=== PATIENT | female | born 1960 | race Caucasian/White ===

== ENCOUNTER → 2017-07-31 | Outpatient (CLI) | payer OTHER ==
--- NOTE | 2017-08-05 07:16 | MM ---
Reason for exam: screening (asymptomatic). Last mammogram was performed 1 year and 2 months ago. History: Patient is postmenopausal. Took hormonal contraceptives for 10 years beginning at age 24. Physical Findings: A clinical breast exam by your physician is recommended on an annual basis and results should be correlated with mammographic findings. MG 3D Screening Mammo W/Cad Bilateral CC and MLO view(s) were taken. Prior study comparison: May 22, 2016, bilateral MG 3d work up w/cad MYLES. May 11, 2016, bilateral MG screening mammo w CAD. February 22, 2015, bilateral MG screening mammo w CAD. The breast tissue is heterogeneously dense. This may lower the sensitivity of mammography. No suspicious abnormality. No significant changes when compared with prior studies. ASSESSMENT: Negative, BI-RAD 1 RECOMMENDATION: Routine screening mammogram of both breasts in 1 year.
== END | disposition home or self-care (01) ==
LOC: RADMAMWWP 07:35
PROVIDERS: ATTEND Obstetrics & Gynecology
DX: Z12.31 Encounter for screening mammogram for malignant neoplasm of breast (principal)
CPT/HCPCS: 77063; G0202

== ENCOUNTER → 2018-08-08 | Outpatient (CLI) | payer OTHER ==
--- NOTE | 2018-08-11 11:56 | MM ---
Reason for exam: screening (asymptomatic). Last mammogram was performed 1 year ago. History: Patient is postmenopausal. Took hormonal contraceptives for 10 years beginning at age 24. Physical Findings: A clinical breast exam by your physician is recommended on an annual basis and results should be correlated with mammographic findings. MG 3D Screening Mammo W/Cad Bilateral CC and MLO view(s) were taken. Prior study comparison: July 31, 2017, bilateral MG 3d screening mammo w/cad. May 22, 2016, bilateral MG 3d work up w/cad MYLES. The breast tissue is extremely dense which could obscure a lesion on mammography. Benign calcifications. There is chronic nodularity in the left breast, stable. No significant changes when compared with prior studies. ASSESSMENT: Benign, BI-RAD 2 RECOMMENDATION: Routine screening mammogram of both breasts in 1 year.
== END | disposition home or self-care (01) ==
LOC: RADMAMWWP 12:43
PROVIDERS: ATTEND Obstetrics & Gynecology
DX: Z12.31 Encounter for screening mammogram for malignant neoplasm of breast (principal)
CPT/HCPCS: 77063; 77067

== ENCOUNTER → 2018-09-29 | Outpatient (CLI) | payer OTHER ==
--- NOTE | 2018-09-29 18:28 | BD ---
EXAMINATION TYPE: Axial Bone Density DATE OF EXAM: 09/29/2018 COMPARISON: NONE CLINICAL HISTORY: 58-year-old female follow-up known osteoporosis Height: 64.5 Weight: 137.7 FRAX RISK QUESTIONS: Alcohol (3 or more units per day): no Family History (Parent hip fracture): no Glucocorticoids (More than 3mos): no (Ex: prednisone, prednisolone, methylprednisolone, dexamethasone, and hydrocortisone). History of Fracture in Adulthood: no Secondary Osteoporosis: 1. Type 1 Diabetes: no 2. Hyperthyroidism: no 3. Menopause before 45: no 4. Malnutrition: no 5. Chronic liver disease: no Rheumatoid Arthritis: no Current Tobacco Use: no RISK FACTORS HISTORY OF: Family History of Osteoporosis: no Active: yes Diet low in dairy products/other sources of calcium: no Postmenopausal woman: age 50 Lost more than 2 inches in height since high school: no MEDICATIONS: none Additional History: EXAM MEASUREMENTS: Bone mineral densitometry was performed using the [employer] System. Bone mineral density as measured about the Lumbar spine is: ----- L1-L4(G/cm2): 1.261 T Score Values are as follows: ----- L2: 0.4 ----- L3: 0.6 ----- L4: 0.8 ----- L1-L4: 0.7 Bone mineral density has: decreased -9.6 % since study of: 03.07.2012 Bone mineral density about the R hip (g/cm2): 0.880 Bone mineral density about the L hip (g/cm2): 0.836 T Score values are as follows: -----R Neck: -1.1 -----L Neck: -1.5 -----R Total: -0.8 -----L Total: -0.1 Bone mineral density has: decreased -4.5 % since study of: 03.07.2012 IMPRESSION: Osteopenia (T Score between -2.5 and -1). There is slightly increased risk of fracture and the patient may be considered for treatment. Re-Screen 2-5 years. NOTE: T-SCORE=SD OF THE YOUNG ADULT MEAN.
== END | disposition home or self-care (01) ==
LOC: RADBDWWP 16:01
PROVIDERS: ATTEND Internal Medicine
DX: M81.0 Age-related osteoporosis without current pathological fracture (principal)
CPT/HCPCS: 77080

== ENCOUNTER → 2019-10-07 | Outpatient (CLI) | payer OTHER ==
--- NOTE | 2019-10-08 10:09 | MM ---
Reason for exam: screening (asymptomatic). Last mammogram was performed 1 year and 2 months ago. History: Patient is postmenopausal. Took hormonal contraceptives for 10 years beginning at age 24. Physical Findings: A clinical breast exam by your physician is recommended on an annual basis and results should be correlated with mammographic findings. MG 3D Screening Mammo W/Cad Bilateral CC and MLO view(s) were taken. Prior study comparison: August 08, 2018, bilateral MG 3d screening mammo w/cad. July 31, 2017, bilateral MG 3d screening mammo w/cad. The breast tissue is heterogeneously dense. This may lower the sensitivity of mammography. There are benign appearing bilateral calcifications and bilateral oil cysts. No suspicious abnormality. No significant changes when compared with prior studies. ASSESSMENT: Benign, BI-RAD 2 RECOMMENDATION: Routine screening mammogram of both breasts in 1 year.
== END | disposition home or self-care (01) ==
LOC: RADMAMWWP 07:48
PROVIDERS: ATTEND Obstetrics & Gynecology
DX: Z12.31 Encounter for screening mammogram for malignant neoplasm of breast (principal)
CPT/HCPCS: 77063; 77067

== ENCOUNTER → 2020-12-30 | Outpatient (CLI) | payer OTHER ==
--- NOTE | 2021-01-02 11:15 | MM ---
Reason for exam: screening (asymptomatic). Last mammogram was performed 1 year and 3 months ago. History: Patient is postmenopausal. Took hormonal contraceptives for 10 years beginning at age 24. Physical Findings: A clinical breast exam by your physician is recommended on an annual basis and results should be correlated with mammographic findings. MG 3D Screening Mammo W/Cad Bilateral CC and MLO view(s) were taken. Prior study comparison: October 07, 2019, bilateral MG 3d screening mammo w/cad. August 08, 2018, bilateral MG 3d screening mammo w/cad. The breast tissue is heterogeneously dense. This may lower the sensitivity of mammography. There is no discrete abnormality. No significant changes when compared with prior studies. ASSESSMENT: Negative, BI-RAD 1 RECOMMENDATION: Routine screening mammogram of both breasts in 1 year.
== END | disposition home or self-care (01) ==
LOC: RADMAMWWP 13:55
PROVIDERS: ATTEND Obstetrics & Gynecology
DX: Z12.31 Encounter for screening mammogram for malignant neoplasm of breast (principal); Z78.0 Asymptomatic menopausal state
CPT/HCPCS: 77063; 77067

== ENCOUNTER → 2022-02-13 | Outpatient (CLI) | payer OTHER ==
--- NOTE | 2022-02-15 17:29 | MM ---
Reason for Exam: Screening (asymptomatic). Last mammogram was performed 1 year(s) and 2 month(s) ago. Patient History: Menarche at age 13. First Full-Term at age 22. Postmenopausal. Hormonal Contraceptives, starting at age 24 for 10 years. Risk Values: Dana 5 year model risk: 1.3%. NCI Lifetime model risk: 6.4%. Prior Study Comparison: 08/08/2018 Bilateral Screening Mammogram, [facility]. 10/07/2019 Bilateral Screening Mammogram, [facility]. 12/30/2020 Bilateral Screening Mammogram, [facility]. Tissue Density: The breast tissue is heterogeneously dense. This may lower the sensitivity of mammography. Findings: Analyzed By CAD. The pattern appears symmetrical and stable. Benign spherical calcifications are present. No significant interval changes. No suspicious groups of microcalcifications, spiculated or lobular masses, Architectural distortion or other secondary signs of malignancy are mammographically apparent. Overall Assessment: Benign, BI-RAD 2 Management: Screening Mammogram of both breasts in 1 year. A clinical breast exam by your physician is recommended on an annual basis and results should be correlated with mammographic findings. Electronically signed and approved by: Lester Cortez D.O. Radiologis
== END | disposition home or self-care (01) ==
LOC: RADMAMWWP 11:09
PROVIDERS: ATTEND Obstetrics & Gynecology
DX: Z12.31 Encounter for screening mammogram for malignant neoplasm of breast (principal)
CPT/HCPCS: 77063; 77067

== ENCOUNTER 2022-12-26 11:38 | Day surgery (SDC) | payer OTHER ==
[~2022-12-26 11:38] MED LIST: LACTATED RINGERS 1,000 ML IV SCH; LIDOCAINE 1% (10MG/ML) FOR IV START INTRADERMA PRN
[2022-12-26 12:30] VITALS: TEMP 98.2
[2022-12-26] MEDS ORDERED: LIDOCAINE 2% INJ 20 MG/ML (2 ML VIAL) ONE (12:34)
[2022-12-26] MEDS ORDERED: PROPOFOL 10 MG/ML 20 ML VIAL IV ONE (12:34)
--- NOTE | 2022-12-26 12:48 | P.PCN ---
Date of Procedure: 12/26/22 Procedure(s) Performed: BRIEF HISTORY: Patient is a 62-year-old pleasant white female scheduled for an elective colonoscopy as a part of screening for colon cancer. PROCEDURE PERFORMED: Colonoscopy. PREOPERATIVE DIAGNOSIS: Screening for colon cancer. IV sedation per Anesthesia. PROCEDURE: After informed consent was obtained, the patient, was brought into the endoscopy unit. IV sedation was administered by Anesthesia under continuous monitoring. Digital rectal examination was normal. Initially the Olympus CF-160 flexible video colonoscope was then inserted in the rectum, gradually advanced into the cecum without any difficulty. Careful examination was performed as the scope was gradually being withdrawn. Ileocecal valve and the appendiceal orifice were visualized and appeared normal. Prep was excellent. Mucosa of the cecum, ascending colon, transverse colon, descending colon, sigmoid colon, and rectum appeared normal. Retroflexion was performed in the rectum and small internal hemorrhoid were seen. The patient tolerated the procedure well. IMPRESSION: Normal-appearing colon from rectum to cecum with no evidence of colorectal neoplasia Small internal hemorrhoids . RECOMMENDATIONS: Findings of this examination were discussed with the patient as well as a family.. She was advised to have a repeat screening colonoscopy in 10 years
[2022-12-26 13:06] VITALS: RESP 16
[2022-12-26 13:12] VITALS: BP 111/70; PULSE 66
== END 2022-12-26 13:37 | disposition home or self-care (01) ==
LOC: ORWHC2ENDO 11:38
PROVIDERS: ATTEND Internal Medicine Gastroenterology
DX: Z12.11 Encounter for screening for malignant neoplasm of colon (principal); K64.8 Other hemorrhoids; F41.9 Anxiety disorder, unspecified; Z79.899 Other long term (current) drug therapy
CPT/HCPCS: 45378; J2704; J2001

== ENCOUNTER → 2023-08-29 | Outpatient (CLI) | payer OTHER ==
--- NOTE | 2023-08-29 21:49 | BD ---
EXAMINATION TYPE: Axial Bone Density DATE OF EXAM: 08/29/2023 CLINICAL HISTORY: 63 years old Female. ICD-10 CODE: M85.80 DISORDER OF BONE DENSITY Height: 64.25in Weight: 137lb FRAX RISK QUESTIONS: Secondary Osteoporosis: RISK FACTORS HISTORY OF: Active: yes Postmenopausal woman: yes MEDICATIONS: Additional Medications: calcium with vitamin d Additional History: EXAM MEASUREMENTS: Bone mineral densitometry was performed using the [employer] System. Bone mineral density as measured about the Lumbar spine is: ----- L1-L4(G/cm2): 1.254 T Score Values are as follows: ----- L1: 0.3 ----- L2: 0.2 ----- L3: 0.8 ----- L4: 1.0 ----- L1-L4: 0.6 Z Score Values are as follows: ----- L1: 1.8 ----- L2: 1.7 ----- L3: 2.3 ----- L4: 2.6 ----- L1-L4: 2.2 Bone mineral density has: Decreased -10.6% since study of: 03-07-12 (2019 study not available for jeremiah wall) Bone mineral density about the R hip (g/cm2): 0.897 Bone mineral density about the L hip (g/cm2): 0.996 T Score values are as follows: -----R Neck: -1.7 -----L Neck: -1.0 -----R Total: -0.9 -----L Total: -0.1 Z Score values are as follows: -----R Neck: -0.3 -----L Neck: 0.5 -----R Total: 0.3 -----L Total: 1.1 Bone mineral density has: Decreased -5.2% since study of: 03-07-12 (2019 study not available for alex be) FRAX%s: The graph provided illustrates a 9.1% chance for a major osteoporotic fx and a 1.1% chance fo r the hips probability for fx in 10 years time. IMPRESSION: Osteopenia (T Score between -2.5 and -1). There is slightly increased risk of fracture and the patient may be considered for treatment. Re-Screen 2-5 years. NOTE: T-SCORE=SD OF THE YOUNG ADULT MEAN.
--- NOTE | 2023-09-03 19:19 | MM ---
Reason for Exam: Screening (asymptomatic). Last mammogram was performed 1 year(s) and 6 month(s) ago. Patient History: Menarche at age 13. First Full-Term at age 22. Postmenopausal. Hormonal Contraceptives, starting at age 24 for 10 years. Risk Values: Dana 5 year model risk: 1.4%. NCI Lifetime model risk: 6.0%. Prior Study Comparison: 10/07/2019 Bilateral Screening Mammogram, [facility]. 12/30/2020 Bilateral Screening Mammogram, [facility]. 02/13/2022 Bilateral MG 3D screening mammo w/cad, [facility]. Tissue Density: The breast tissue is heterogeneously dense. This may lower the sensitivity of mammography. Findings: Analyzed By CAD. Nodularity in the upper outer quadrant of the right breast is increased on the CC projection but remains similar on the MLO view. Further evaluation is recommended. Otherwise, no significant change. Overall Assessment: Incomplete: need additional imaging evaluation, BI-RAD 0 Management: Special View Mammogram of the right breast. Diagnostic Breast Ultrasound of the right breast. Additional views right breast to include spot 3-D CC, 3-D CC rolled, spot 3-D MLO, and 3-D ML views. Targeted right breast ultrasound if any persisting abnormality. [facility] will attempt to contact patient to return for supplemental views and ultrasound if indicated. Electronically signed and approved by: Aristeo Head M.D. Radiologist
== END | disposition home or self-care (01) ==
LOC: RADBDWWP 07:13
PROVIDERS: ATTEND Family Medicine
DX: Z12.31 Encounter for screening mammogram for malignant neoplasm of breast (principal); M85.851 Other specified disorders of bone density and structure, right thigh; Z78.0 Asymptomatic menopausal state
CPT/HCPCS: 77063; 77067; 77080

== ENCOUNTER → 2023-09-19 | Outpatient (CLI) | payer OTHER ==
--- NOTE | 2023-09-19 08:52 | MM ---
Reason for Exam: Additional evaluation requested from abnormal screening. Last screening mammogram was performed less than 1 month ago. Patient History: Menarche at age 13. First Full-Term at age 22. Postmenopausal. Hormonal Contraceptives, starting at age 24 for 10 years. Risk Values: Dana 5 year model risk: 1.4%. NCI Lifetime model risk: 6.0%. Tissue Density: Right: The breast tissue is heterogeneously dense. This may lower the sensitivity of mammography. Findings: Analyzed By CAD. There is persistent high density area within distinct margins upper outer mid right breast. There are small calcifications present which are increasing from comparison. Biopsy is recommended. Overall Assessment: Incomplete: need additional imaging evaluation, BI-RAD 0 Management: Diagnostic Breast Ultrasound of the right breast. A negative mammogram report should not preclude additional follow up of suspicious palpable abnormalities. Patient should continue monthly self breast exam. A clinical breast exam by your physician is recommended on an annual basis and results should be correlated with mammographic findings. Electronically signed and approved by: Lester Cortez D.O. Radiologis
--- NOTE | 2023-09-19 10:20 | USB ---
Reason for Exam: Additional evaluation requested from abnormal screening. Patient History: Menarche at age 13. First Full-Term at age 22. Postmenopausal. Hormonal Contraceptives, starting at age 24 for 10 years. Risk Values: Dana 5 year model risk: 1.4%. NCI Lifetime model risk: 6.0%. Technique: Method: Targeted. Prior Study Comparison: 12/30/2020 Bilateral Screening Mammogram, [facility]. 02/13/2022 Bilateral MG 3D screening mammo w/cad, [facility]. 08/29/2023 Bilateral MG 3D screening mammo w/cad, [facility]. Findings: The upper outer quadrant of the right breast, the axilla of the right breast and the retroareolar of the right breast were scanned. There is a 0.5 x 0.5 x 0.7 cm nodule 10:00 position 3 cm from the nipple. This appears to correlate with mammographic findings. Some shadowing may be related to calcification structure. Finding is considered suspicious, biopsy is recommended. Note is made of an anechoic structure measuring approximately 0.2 x 0.3 x 0.5 cm in the right nipple region may be a small cyst.. Overall Assessment: Suspicious, BI-RAD 4 Management: Ultrasound Core Biopsy of the right breast. A clinical breast exam by your physician is recommended on an annual basis and results should be correlated with mammographic findings. This exam should not preclude additional follow-up of suspicious palpable abnormalities. Results were given to the patient verbally at the time of exam. Electronically signed and approved by: Lester Cortez D.O. Radiologis
== END | disposition home or self-care (01) ==
LOC: RADMAMWWP 08:23
PROVIDERS: ATTEND Family Medicine
DX: R92.331 Mammographic heterogeneous density, right breast (principal); Z78.0 Asymptomatic menopausal state
CPT/HCPCS: 77061; 77065

== ENCOUNTER → 2023-10-02 | Day surgery (SDC) | payer OTHER | LOC: RADUSWWP 12:27 | PROVIDERS: ATTEND Surgery | DX: R92.1 Mammographic calcification found on diagnostic imaging of breast (principal) | CPT/HCPCS: 88305; 77065; 19083; A4648 ==

== ENCOUNTER → 2023-10-18 | Outpatient (CLI) | payer OTHER ==
--- NOTE | 2023-10-18 13:06 | P.GSHP ---
History of Present Illness H&P Date: 10/18/23 Chief Complaint: Stereo biopsy right breast/benign concordant 10-02-23 Roro is a 63-year-old white female seen in consultation for Dr. Colunga regarding a right breast ultrasound-guided core biopsy. She underwent a bilateral mammogram August 2023 which led to additional views of the right breast. The additional views were done on 09-19-2023. This led to an ultrasound-guided core biopsy of the right breast on 10-02-2023. Pathology revealed scar with calcifications and chronic inflammation. Negative for malignancy. This was reviewed personally with the radiologist and this was felt to be benign and concordant. The patient had not felt any lumps masses or nod ules of concern in either breast prior to the biopsy. She had never had any surgery on her breast before. She is not complaining of any recent trauma or infection in the breast. Caffeine: none nicotine: none chocolate: occasional BCP: 7 years hormones: none Family History: Prostate cancer Sister: Kidney cancer Hormonal history: Menarche: 13 , age at first : 22, breast fed: yes menopause: 50 Surgical history: uterine ablation LEEP sinus surgery Medical History: none Social History: nicotine: none alcohol: occasional drugs: none - Constitutional Constitutional: Reports sweats - EENT Eyes: bilateral dry eye, denies blurred vision, denies pain Ears: deny: decreased hearing, tinnitus Ears, nose, mouth and throat: Denies headache, Denies sore throat - Breasts Breasts: bilateral: as per HPI - Cardiovascular Cardiovascular: Denies chest pain, Denies shortness of breath - Respiratory Respiratory: Denies cough, Denies 7 - Gastrointestinal Comment: IBS Gastrointestinal: Reports diarrhea, Denies abdominal pain, Denies nausea, Denies vomiting - Genitourinary (Female) Genitourinary: Denies dysuria, Denies hematuria - Menstruation Menstruation: Reports postmenopausal - Musculoskeletal Musculoskeletal: Denies myalgias - Integumentary Integumentary: Denies pruritus, Denies rash - Neurological Neurological: Denies numbness, Denies weakness - Psychiatric Psychiatric: Reports anxiety, Reports depression - Endocrine Endocrine: Denies fatigue, Denies weight change - Hematologic/Lymphatic Comment: none - Allergic/Immunologic Allergic/Immunologic: Reports seasonal allergies Past Medical History Past Medical History: No Reported History History of Any Multi-Drug Resistant Organisms: None Reported Past Surgical History: No Surgical Hx Reported Additional Past Surgical History / Comment(s): colonoscopy, LEEP procedure Past Anesthesia/Blood Transfusion Reactions: No Reported Reaction Past Psychological History: Anxiety Smoking Status: Never smoker Past Alcohol Use History: Occasional Additional Past Alcohol Use History / Comment(s): couple drinks per week Past Drug Use History: None Reported Medications and Allergies Home Medications Medication Instructions Recorded Confirmed Type Multivitamins, Thera [Multivitamin 1 tab PO DAILY 12/21/22 10/18/23 History (formulary)] Venlafaxine HCl [Effexor XR] 75 mg PO DAILY 12/21/22 10/18/23 History Cholecalciferol (Vitamin D3) 50 mcg PO DAILY 10/18/23 10/18/23 History [Vitamin D3 (50 Mcg = 2000 Iu)] Fish Oil/Dha/Epa [Fish Oil 1,200 1,200 mg PO DAILY 10/18/23 10/18/23 History mg Fish Oil] Allergies Allergy/AdvReac Type Severity Reaction Status Date / Time venom-honey bee Allergy Swelling Verified 10/18/23 12:50 [bee venom (honey bee)] Surgical - Exam - General no distress - Eyes normal ocular movement - ENT no hearing loss - Neck trachea midline - Respiratory normal respiratory effort, clear to auscultation - Cardiovascular Heart Sounds: normal: S1, S2 - Abdomen Abdomen: soft - Integumentary normal turgor - Neurologic no disoriented, no combative - Musculoskeletal normal gait - Psychiatric oriented to time, oriented to person, oriented to place, speech is normal, memory intact Breast Exam: BRA: 34B Inspection: Bilateral grade 2 ptosis Palpation: Right breast: Multi positional exam no dominant masses or nodules of concern Right axilla: No adenopathy of concern Left breast: Multi positional exam no dominant masses or nodules of concern Left axilla: No adenopathy of concern Results Mammogram and ultrasound personally reviewed with radiology, the biopsy is felt to be benign concordant Assessment and Plan Assessment: Impression: Radiographic abnormality right breast Status post stereotactic core biopsy right breast/benign concordant Plan: Repeat right breast mammogram in 6 months with physician exam at that time Patient to follow-up sooner any questions or concerns CC: Dr. Salgado
[2023-10-18 13:07] VITALS: BP 128/71; PULSE 77; RESP 15; TEMP 98.1
== END ==
LOC: WWCWWP 12:09
PROVIDERS: ATTEND Surgery
DX: R92.8 Other abnormal and inconclusive findings on diagnostic imaging of breast (principal); N64.89 Other specified disorders of breast; F41.9 Anxiety disorder, unspecified; Z91.030 Bee allergy status

== ENCOUNTER → 2024-04-02 | Outpatient (CLI) | payer OTHER ==
--- NOTE | 2024-04-02 09:50 | USB ---
Reason for Exam: Follow-up at short interval from prior study. Patient History: Menarche at age 13. First Full-Term at age 22. Postmenopausal. Patient has history of breast feeding. Hormonal Contraceptives, starting at age 24 for 10 years. 10/02/2023, Benign US biopsy breast VAD RT on the right side. Risk Values: Dana 5 year model risk: 1.7%. NCI Lifetime model risk: 6.9%. Technique: Method: Targeted. Prior Study Comparison: 08/29/2023 Bilateral MG 3D screening mammo w/cad, [facility]. 09/19/2023 Right MG 3D work up w/cad RT, [facility]. 10/02/2023 Right MG diagnostic mammo RT wo CAD, [facility]. Findings: The lateral section of the breast of the right breast, the axilla of the right breast and the retroareolar of the right breast were scanned. Previously sampled slightly hypoechoic and partially hyperechoic lesion right 10:00 breast 3 cm from the nipple is slightly smaller in size and currently measures 0.4 x 0.4 x 0.4 cm versus 0.5 x 0.5 x 0.7 cm. Overall Assessment: Benign, BI-RAD 2 Management: Screening Mammogram of both breasts in 1 year. A clinical breast exam by your physician is recommended on an annual basis and results should be correlated with mammographic findings. This exam should not preclude additional follow-up of suspicious palpable abnormalities. Results were given to the patient verbally at the time of exam. Electronically signed and approved by: Aristeo Portillo M.D. Radiologis
--- NOTE | 2024-04-02 12:02 | MM ---
Reason for Exam: Follow-up at short interval from prior study. Last screening mammogram was performed 7 month(s) ago. Patient History: Menarche at age 13. First Full-Term at age 22. Postmenopausal. Patient has history of breast feeding. Hormonal Contraceptives, starting at age 24 for 10 years. 10/02/2023, Benign US biopsy breast VAD RT on the right side. Risk Values: Dana 5 year model risk: 1.7%. NCI Lifetime model risk: 6.9%. Prior Study Comparison: 07/31/2017 Bilateral Screening Mammogram, [facility]. 08/08/2018 Bilateral Screening Mammogram, [facility]. 10/07/2019 Bilateral Screening Mammogram, [facility]. 12/30/2020 Bilateral Screening Mammogram, [facility]. 02/13/2022 Bilateral MG 3D screening mammo w/cad, [facility]. 08/29/2023 Bilateral MG 3D screening mammo w/cad, [facility]. 09/19/2023 Right MG 3D work up w/cad RT, [facility]. 10/02/2023 Right MG diagnostic mammo RT wo CAD, [facility]. Tissue Density: Right: The breasts are heterogeneously dense, which may obscure small masses. Findings: Analyzed By CAD. Postbiopsy changes right breast. Ultrasound recommended for further evaluation. Benign punctate calcifications seen. No evidence for new mass or distortion. Overall Assessment: Incomplete: need additional imaging evaluation, BI-RAD 0 Management: Diagnostic Breast Ultrasound of the right breast. . Results were given to the patient verbally at the time of exam. Patient should continue monthly self-breast exams. A clinical breast exam by your physician is recommended on an annual basis. This exam should not preclude additional follow-up of suspicious palpable abnormalities. Note on Dana scores and lifetime risk: 1. A Dana score greater than 3% is considered moderate risk. If this is the case, consider specialist referral to assess eligibility for a risk reducing agent. 2. If overall lifetime risk for the development of breast cancer is 20% or higher, the patient may qualify for future screening with alternating mammogram and breast MRI. Electronically signed and approved by: Aristeo Portillo M.D. Radiologis
== END | disposition home or self-care (01) ==
LOC: RADMAMWWP 09:00
PROVIDERS: ATTEND Surgery
DX: R92.8 Other abnormal and inconclusive findings on diagnostic imaging of breast (principal); N63.11 Unspecified lump in the right breast, upper outer quadrant; R92.331 Mammographic heterogeneous density, right breast; Z78.0 Asymptomatic menopausal state
CPT/HCPCS: 77061; 77065

== ENCOUNTER → 2024-04-03 | Outpatient (CLI) | payer OTHER ==
[2024-04-03 09:42] VITALS: BP 105/65; PULSE 73; RESP 17; TEMP 97.8
--- NOTE | 2024-04-03 09:50 | P.PN ---
Subjective Progress Note Date: 04/03/24 Principal diagnosis: dense breast fibrocystic breast scar in right breast with chronic inflammation Roro is a 63-year-old white female seen in consultation for Dr. Colunga regarding a right breast ultrasound-guided core biopsy. She underwent a bilateral mammogram August 2023 which led to additional views of the right breast. The additional views were done on 09-19-2023. This led to an ultrasound-guided core biopsy of the right breast on 10-02-2023. Pathology revealed scar with calcifications and chronic inflammation. Negative for malignancy. This was reviewed personally with the radiologist and this was felt to be benign and concordant. The patient had not felt any lumps masses or nodules of concern in either breast prior to the biopsy. She had never had any surgery on her breast before. She is not complaining of any recent trauma or infection in the breast. The patient on 04-02-24 had a right breast mammogram and ultrasound. These were personally reviewed and interpreted. Dense breast, previously noted hyperechoic lesion stable BIRAD 2 She is not complaining of any new lumps masses or nodules of concern in either breast. Caffeine: none nicotine: none chocolate: occasional BCP: 7 years hormones: none Family History: Prostate cancer Sister: Kidney cancer Hormonal history: Menarche: 13 , age at first : 22, breast fed: yes menopause: 50 Surgical history: uterine ablation LEEP sinus surgery stero biopsy right breast Medical History: none Social History: nicotine: none alcohol: occasional drugs: none - Constitutional Constitutional: Reports sweats - EENT Eyes: bilateral dry eye, denies blurred vision, denies pain Ears: deny: decreased hearing, tinnitus Ears, nose, mouth and throat: Denies headache, Denies sore throat - Breasts Breasts: bilateral: as per HPI - Cardiovascular Cardiovascular: Denies chest pain, Denies shortness of breath - Respiratory Respiratory: Denies cough - Gastrointestinal Comment: IBS Gastrointestinal: Reports diarrhea, Denies abdominal pain, Denies nausea, Denies vomiting - Genitourinary (Female) Genitourinary: Denies dysuria, Denies hematuria - Menstruation Menstruation: Reports postmenopausal - Musculoskeletal Musculoskeletal: Denies myalgias - Integumentary Integumentary: Denies pruritus, Denies rash - Neurological Neurological: Denies numbness, Denies weakness - Psychiatric Psychiatric: Reports anxiety, Reports depression - Endocrine Endocrine: Denies fatigue, Denies weight change - Hematologic/Lymphatic Comment: none - Allergic/Immunologic Allergic/Immunologic: Reports seasonal allergies Past Medical History Past Medical History: No Reported History History of Any Multi-Drug Resistant Organisms: None Reported Past Surgical History: No Surgical Hx Reported Additional Past Surgical History / Comment(s): colonoscopy, LEEP procedure Past Anesthesia/Blood Transfusion Reactions: No Reported Reaction Past Psychological History: Anxiety Smoking Status: Never smoker Past Alcohol Use History: Occasional Additional Past Alcohol Use History / Comment(s): couple drinks per week Past Drug Use History: None Reported Medications and Allergies Home Medications Medication Instructions Recorded Confirmed Type Multivitamins, Thera [Multivitamin 1 tab PO DAILY 12/21/22 10/18/23 History (formulary)] Venlafaxine HCl [Effexor XR] 75 mg PO DAILY 12/21/22 10/18/23 History Cholecalciferol (Vitamin D3) 50 mcg PO DAILY 10/18/23 10/18/23 History [Vitamin D3 (50 Mcg = 2000 Iu)] Fish Oil/Dha/Epa [Fish Oil 1,200 1,200 mg PO DAILY 10/18/23 10/18/23 History mg Fish Oil] Allergies Allergy/AdvReac Type Severity Reaction Status Date / Time venom-honey bee Allergy Swelling Verified 10/18/23 12:50 [bee venom (honey bee)] Objective - Vital Signs Vital signs: Intake & Output 04/02/24 04/03/24 04/03/24 18:59 06:59 18:59 Weight 61.689 kg - Constitutional General appearance: Present: cooperative - EENT Eyes: Present: EOMI ENT: Present: hearing grossly normal - Neck Neck: Present: normal ROM - Respiratory Respiratory: bilateral: CTA - Cardiovascular Heart sounds: normal: S1, S2 - Integumentary Integumentary: Present: normal turgor - Musculoskeletal Musculoskeletal: Present: gait normal - Psychiatric Psychiatric: Present: A&O x's 3, appropriate affect, intact judgment & insight - Additional findings Additional findings: Breast Exam: BRA: 34B Inspection: Bilateral grade 2 ptosis Palpation: Right breast: Multi positional exam no dominant masses or nodules of concern, dense breast with fibrocystic changes Right axilla: No adenopathy of concern Left breast: Multi positional exam no dominant masses or nodules of concern, dense breast with fibrocystic changes Left axilla: No adenopathy of concern Assessment and Plan Assessment: Impression: dense breast fibrocystic breast changes scar with inflamation right breast Status post stereotactic core biopsy right breast/benign concordant Plan: bilateral mammogram in August with exam at at that time follow up sooner if any concerns CC: Dr. Naomi Read
== END ==
LOC: WWCWWP 08:59
PROVIDERS: ATTEND Surgery
DX: R92.1 Mammographic calcification found on diagnostic imaging of breast (principal); R92.30 Dense breasts, unspecified; N60.11 Diffuse cystic mastopathy of right breast; N60.12 Diffuse cystic mastopathy of left breast; Z91.030 Bee allergy status

== ENCOUNTER → 2024-09-07 | Outpatient (CLI) | payer OTHER ==
--- NOTE | 2024-09-07 14:56 | MM ---
Reason for Exam: Follow-up at short interval from prior study. Last screening mammogram was performed 12 month(s) ago. Patient History: Menarche at age 13. First Full-Term at age 22. Postmenopausal. Patient has history of breast feeding. Hormonal Contraceptives, starting at age 24 for 10 years. 10/02/2023, Benign US biopsy breast VAD RT on the right side. Risk Values: Dana 5 year model risk: 1.7%. NCI Lifetime model risk: 6.9%. Tissue Density: The breasts are heterogeneously dense, which may obscure small masses. Findings: Analyzed By CAD. The pattern is symmetrical. There is a focal asymmetry which appears better visualized on the current examination upper outer posterior right breast appears to been interval change. Additional workup with compression views and mediolateral view were obtained. Area disperses normally. Findings there is persistent medial lateral view. Short-term follow-up can be performed. Left breast:No suspicious groups of microcalcifications, spiculated or lobular masses, architectural distortion or other secondary signs of malignancy are mammographically apparent. Overall Assessment: Probably benign, BI-RAD 3 Management: Diagnostic Mammogram of the right breast in 6 months. A negative mammogram report should not preclude additional follow up of suspicious palpable abnormalities. Patient should continue monthly self breast exam. A clinical breast exam by your physician is recommended on an annual basis and results should be correlated with mammographic findings. Note on Dana scores and lifetime risk: 1. A Dana score greater than 3% is considered moderate risk. If this is the case, consider specialist referral to assess eligibility for a risk reducing agent. 2. If overall lifetime risk for the development of breast cancer is 20% or higher, the patient may qualify for future screening with alternating mammogram and breast MRI. [facility], , 09/07/2024 2:52 PM. Electronically signed and approved by: Lester Cortez D.O. Radiologis
== END | disposition home or self-care (01) ==
LOC: RADMAMWWP 13:39
PROVIDERS: ATTEND Surgery
DX: R92.8 Other abnormal and inconclusive findings on diagnostic imaging of breast (principal); R92.333 Mammographic heterogeneous density, bilateral breasts; Z78.0 Asymptomatic menopausal state
CPT/HCPCS: 77062; 77066

== ENCOUNTER → 2024-09-24 | Outpatient (CLI) | payer OTHER ==
[2024-09-24 09:27] VITALS: BP 122/69; PULSE 87; RESP 16; TEMP 98.3
--- NOTE | 2024-09-24 10:20 | P.PN ---
Subjective Progress Note Date: 09/24/24 Principal diagnosis: fibrocystic breast changes dense breast fibrocystic breast scar in right breast with chronic inflammation Roro is a 64-year-old white female seen in consultation for Dr. Higgins regarding a right breast ultrasound-guided core biopsy. She underwent a b ilateral mammogram August 2023 which led to additional views of the right breast. The additional views were done on 09-19-2023. This led to an ultrasound-guided core biopsy of the right breast on 10-02-2023. Pathology revealed scar with calcifications and chronic inflammation. Negative for malignancy. This was reviewed personally with the radiologist and this was felt to be benign and concordant. The patient had not felt any lumps masses or nodules of concern in either breast prior to the biopsy. She had never had any surgery on her breast before. She is not complaining of any recent trauma or infection in the breast. The patient on 04-02-24 had a right breast mammogram and ultrasound. These were personally reviewed and interpreted. Dense breast, previously noted hyperechoic lesion stable BIRAD 2 She is not complaining of any new lumps masses or nodules of concern in either breast. Repeat bilateral mammogram on 09-07-24 BIRAD 3 repeat right breast mammogram in 6 months, personally reviewed She is not complaining of any new lumps masses or nodules of concern in either breast Caffeine: none nicotine: none chocolate: occasional BCP: 7 years hormones: none Family History: Prostate cancer Sister: Kidney cancer Hormonal history: Menarche: 13 , age at first : 22, breast fed: yes menopause: 50 Surgical history: uterine ablation LEEP sinus surgery stero biopsy right breast Medical History: none Social History: nicotine: none alcohol: occasional drugs: none - Constitutional Constitutional: Reports sweats - EENT Eyes: bilateral dry eye, denies blurred vision, denies pain Ears: deny: decreased hearing, tinnitus Ears, nose, mouth and throat: Denies headache, Denies sore throat - Breasts Breasts: bilateral: as per HPI - Cardiovascular Cardiovascular: Denies chest pain, Denies shortness of breath - Respiratory Respiratory: Denies cough - Gastrointestinal Comment: IBS Gastrointestinal: Reports diarrhea, Denies abdominal pain, Denies nausea, Denies vomiting - Genitourinary (Female) Genitourinary: Denies dysuria, Denies hematuria - Menstruation Menstruation: Reports postmenopausal - Musculoskeletal Musculoskeletal: Denies myalgias - Integumentary Integumentary: Denies pruritus, Denies rash - Neurological Neurological: Denies numbness, Denies weakness - Psychiatric Psychiatric: Reports anxiety, Reports depression - Endocrine Endocrine: Denies fatigue, Denies weight change - Hematologic/Lymphatic Comment: none - Allergic/Immunologic Allergic/Immunologic: Reports seasonal allergies Past Medical History Past Medical History: No Reported History History of Any Multi-Drug Resistant Organisms: None Reported Past Surgical History: No Surgical Hx Reported Additional Past Surgical History / Comment(s): colonoscopy, LEEP procedure Past Anesthesia/Blood Transfusion Reactions: No Reported Reaction Past Psychological History: Anxiety Smoking Status: Never smoker Past Alcohol Use History: Occasional Additional Past Alcohol Use History / Comment(s): couple drinks per week Past Drug Use History: None Reported Medications and Allergies Home Medications Medication Instructions Recorded Confirmed Type Multivitamins, Thera [Multivitamin 1 tab PO DAILY 12/21/22 10/18/23 History (formulary)] Venlafaxine HCl [Effexor XR] 75 mg PO DAILY 12/21/22 10/18/23 History Cholecalciferol (Vitamin D3) 50 mcg PO DAILY 10/18/23 10/18/23 History [Vitamin D3 (50 Mcg = 2000 Iu)] Fish Oil/Dha/Epa [Fish Oil 1,200 1,200 mg PO DAILY 10/18/23 10/18/23 History mg Fish Oil] Allergies Allergy/AdvReac Type Severity Reaction Status Date / Time venom-honey bee Allergy Swelling Verified 10/18/23 12:50 [bee venom (honey bee)] Objective - Vital Signs Vital signs: Vital Signs Temp 98.3 F 09/24/24 09:25 Pulse 87 09/24/24 09:25 Resp 16 09/24/24 09:25 BP 122/69 09/24/24 09:25 Pulse Ox 99 09/24/24 09:25 FiO2 Intake & Output 09/23/24 09/24/24 09/24/24 18:59 06:59 18:59 Weight 58.967 kg - Constitutional General appearance: Present: cooperative - EENT Eyes: Present: EOMI ENT: Present: hearing grossly normal - Neck Neck: Present: normal ROM - Respiratory Respiratory: bilateral: CTA - Cardiovascular Rhythm: regular Heart sounds: normal: S1, S2 - Integumentary Integumentary: Present: normal turgor - Musculoskeletal Musculoskeletal: Present: gait normal - Psychiatric Psychiatric: Present: A&O x's 3, appropriate affect, intact judgment & insight - Additional findings Additional findings: Breast Exam: BRA: 34B Inspection: Bilateral grade 2 ptosis Palpation: Right breast: Multi positional exam no dominant masses or nodules of concern, dense breast with fibrocystic changes, into the upper outer quadrant region does not reveal any specific lumps masses or nodules of concern there is some tenderness greater in the upper outer quadrant on both breast Right axilla: No adenopathy of concern Left breast: Multi positional exam no dominant masses or nodules of concern, dense breast with fibrocystic changes, upper outer quadrant tender Left axilla: No adenopathy of concern Assessment and Plan Assessment: Impression: dense breast fibrocystic breast changes scar with inflamation right breast Status post stereotactic core biopsy right breast/benign concordant bilateral mammogram 09-07-24 BIRAD 3 repeat right breast mammogram in 6 months Plan: right breast mammogram in 6 months with appointment follow up sooner if any concerns bilateral mammogram in 1 matt with appointment CC: Dr. Naomi Read
== END ==
LOC: WWCWWP 08:55
PROVIDERS: ATTEND Surgery
DX: N60.11 Diffuse cystic mastopathy of right breast (principal); N64.89 Other specified disorders of breast; R92.8 Other abnormal and inconclusive findings on diagnostic imaging of breast; Z98.890 Other specified postprocedural states; Z91.030 Bee allergy status

== ENCOUNTER → 2025-03-25 | Outpatient (CLI) | payer MEDICARE, OTHER ==
--- NOTE | 2025-03-25 08:37 | MM ---
Reason for Exam: Follow-up at short interval from prior study. Last screening mammogram was performed 7 month(s) ago. Patient History: Menarche at age 13. First Full-Term at age 22. Postmenopausal. Patient has history of breast feeding. Hormonal Contraceptives, starting at age 24 for 10 years. 10/02/2023, Benign US biopsy breast VAD RT on the right side. Risk Values: Dana 5 year model risk: 1.8%. NCI Lifetime model risk: 6.6%. Prior Study Comparison: 10/02/2023 Right MG diagnostic mammo RT wo CAD, [facility]. 04/02/2024 Right MG 3D diag mammo w/cad RT, [facility]. 09/07/2024 Bilateral MG 3D diag mammo w/cad [facility], [facility]. Tissue Density: Right: The breasts are heterogeneously dense, which may obscure small masses. Findings: Analyzed By CAD. No dominant mass. Benign appearing calcifications. Postbiopsy changes. Overall Assessment: Probably benign, BI-RAD 3 Management: Diagnostic Mammogram of both breasts in 6 months. . Results were given to the patient verbally at the time of exam. Patient should continue monthly self-breast exams. A clinical breast exam by your physician is recommended on an annual basis. This exam should not preclude additional follow-up of suspicious palpable abnormalities. Note on Dana scores and lifetime risk: 1. A Dana score greater than 3% is considered moderate risk. If this is the case, consider specialist referral to assess eligibility for a risk reducing agent. 2. If overall lifetime risk for the development of breast cancer is 20% or higher, the patient may qualify for future screening with alternating mammogram and breast MRI. [facility], , 03/25/2025 8:35 AM. Electronically signed and approved by: Benson Arteaga M.D. Radiologis
== END | disposition home or self-care (01) ==
LOC: RADMAMWWP 08:07
PROVIDERS: ATTEND Surgery
DX: R92.8 Other abnormal and inconclusive findings on diagnostic imaging of breast (principal); R92.331 Mammographic heterogeneous density, right breast; R92.1 Mammographic calcification found on diagnostic imaging of breast; Z78.0 Asymptomatic menopausal state; Z92.0 Personal history of contraception
CPT/HCPCS: 77065; G0279; 77061

== ENCOUNTER → 2025-03-27 | Outpatient (CLI) | payer MEDICARE ==
[2025-03-28 01:47] LABS: ALT 40 U/L (8-44); AST 42 U/L (13-35); Albumin 4.3 g/dL (3.8-4.9); Albumin/Globulin Ratio 1.87 Ratio (1.60-3.17); Alkaline Phosphatase 115 U/L (41-126); Anion Gap 8.70 mmol/L (4.00-12.00); BUN/Creat Ratio 23.25 Ratio (12.00-20.00); Blood Urea Nitrogen 18.6 mg/dL (9.0-27.0); Calcium 9.4 mg/dL (8.7-10.3); Carbon Dioxide 30.3 mmol/L (21.6-31.8); Chloride 102 mmol/L (96-109); Cholesterol 202.00 mg/dL (0.00-200.00); Globulin 2.3 g/dL (1.6-3.3); Glucose 82 mg/dL (70-110); HDL Cholesterol 86.00 mg/dL (40.00-60.00); LDL Cholesterol,Calculated 105.5 mg/dL (0.0-131.0); Potassium 4.7 mmol/L (3.5-5.5); Sodium 141 mmol/L (135-145); Total Protein 6.6 g/dL (6.2-8.2); Triglycerides 52.40 mg/dL (0.00-149.00); VLDL Calculation 10.48 mg/dL (5.00-40.00)
[2025-03-28 07:31] LABS: HCT 42.2 % (37.2-46.3); HGB 13.3 g/dL (12.0-15.0); MCH 29.8 pg (27.0-32.0); MCHC 31.5 g/dL (32.0-37.0); MCV 94.6 FL (80.0-97.0); NRBC Per 100 WBC 0 X 10*3/uL (0.00-0.01); Platelet Count 156 X 10*3/uL (140-440); RBC 4.46 X 10*6/uL (4.10-5.20); RDW 14.1 % (11.5-14.5); WBC 3.30 X 10*3/uL (4.50-10.00)
== END | disposition home or self-care (01) ==
LOC: LABWHC1 11:22
PROVIDERS: ATTEND Family Medicine
DX: Z00.01 Encounter for general adult medical examination with abnormal findings (principal); R53.83 Other fatigue; E66.3 Overweight
CPT/HCPCS: 36415; 80053; 80061; 85027

== ENCOUNTER → 2025-04-08 | Outpatient (CLI) | payer OTHER ==
[2025-04-08 10:34] VITALS: BP 112/65; PULSE 65; RESP 16; TEMP 97.8
--- NOTE | 2025-04-08 10:46 | P.PN ---
Subjective Progress Note Date: 04/08/25 Principal diagnosis: fibrocystic breast disease 04-08-25 Principal diagnosis: fibrocystic breast changes dense breast fibrocystic breast scar in right breast with chronic inflammation Roro is a 65-year-old white female seen in consultation for Dr. Higgins regarding a right breast ultrasound-guided core biopsy. She underwent a bilateral mammogram August 2023 which led to additional views of the right breast. The additional views were done on 09-19-2023. This led to an ultrasound-guided core biopsy of the right breast on 10-02-2023. Pathology revealed scar with calcifications and chronic inflammation. Negative for malignancy. This was reviewed personally with the radiologist and this was felt to be benign and concordant. The patient had not felt any lumps masses or nodules of concern in either breast prior to the biopsy. She had never had any surgery on her breast before. She is not complaining of any recent trauma or infection in the breast. The patient on 04-02-24 had a right breast mammogram and ultrasound. These were personally reviewed and interpreted. Dense breast, previously noted hyperechoic lesion stable BIRAD 2 She is not complaining of any new lumps masses or nodules of concern in either breast. Repeat bilateral mammogram on 09-07-24 BIRAD 3 repeat right breast mammogram in 6 months, personally reviewed She is not complaining of any new lumps masses or nodules of concern in either breast Repeat right breast mammogram on 03-25-25 BIRAD 3 repeat bilateral mammogrma in 6 months. She is not complaining of any new lumps masses or nodules of concern in either breast. Caffeine: none nicotine: none chocolate: occasional BCP: 7 years hormones: none Family History: Prostate cancer Sister: Kidney cancer Hormonal history: Menarche: 13 , age at first : 22, breast fed: yes menopause: 50 Surgical history: uterine ablation LEEP sinus surgery stero biopsy right breast Medical History: none Social History: nicotine: none alcohol: occasional drugs: none - Constitutional Constitutional: Reports sweats - EENT Eyes: bilateral dry eye, denies blurred vision, denies pain Ears: deny: decreased hearing, tinnitus Ears, nose, mouth and throat: Denies headache, Denies sore throat - Breasts Breasts: bilateral: as per HPI - Cardiovascular Cardiovascular: Denies chest pain, Denies shortness of breath - Respiratory Respiratory: Denies cough - Gastrointestinal Comment: IBS Gastrointestinal: Reports diarrhea, Denies abdominal pain, Denies nausea, Denies vomiting - Genitourinary (Female) Genitourinary: Denies dysuria, Denies hematuria - Menstruation Menstruation: Reports postmenopausal - Musculoskeletal Musculoskeletal: Denies myalgias - Integumentary Integumentary: Denies pruritus, Denies rash - Neurological Neurological: Denies numbness, Denies weakness - Psychiatric Psychiatric: Reports anxiety, Reports depression - Endocrine Endocrine: Denies fatigue, Denies weight change - Hematologic/Lymphatic Comment: none - Allergic/Immunologic Allergic/Immunologic: Reports seasonal allergies Past Medical History Past Medical History: No Reported History History of Any Multi-Drug Resistant Organisms: None Reported Past Surgical History: No Surgical Hx Reported Additional Past Surgical History / Comment(s): colonoscopy, LEEP procedure Past Anesthesia/Blood Transfusion Reactions: No Reported Reaction Past Psychological History: Anxiety Smoking Status: Never smoker Past Alcohol Use History: Occasional Additional Past Alcohol Use History / Comment(s): couple drinks per week Past Drug Use History: None Reported Medications and Allergies Home Medications Medication Instructions Recorded Confirmed Type Multivitamins, Thera [Multivitamin 1 tab PO DAILY 12/21/22 10/18/23 History (formulary)] Venlafaxine HCl [Effexor XR] 75 mg PO DAILY 12/21/22 10/18/23 History Cholecalciferol (Vitamin D3) 50 mcg PO DAILY 10/18/23 10/18/23 History [Vitamin D3 (50 Mcg = 2000 Iu)] Fish Oil/Dha/Epa [Fish Oil 1,200 1,200 mg PO DAILY 10/18/23 10/18/23 History mg Fish Oil] Allergies Allergy/AdvReac Type Severity Reaction Status Date / Time venom-honey bee Allergy Swelling Verified 10/18/23 12:50 [bee venom (honey bee)] Objective - Vital Signs Vital signs: Vital Signs Temp 97.8 F 04/08/25 10:32 Pulse 65 04/08/25 10:32 Resp 16 04/08/25 10:32 BP 112/65 04/08/25 10:32 Pulse Ox 96 04/08/25 10:32 FiO2 Intake & Output 04/07/25 04/08/25 04/08/25 18:59 06:59 18:59 Weight 58.967 kg - Constitutional General appearance: Present: cooperative - EENT Eyes: Present: EOMI ENT: Present: hearing grossly normal - Neck Neck: Present: normal ROM - Respiratory Respiratory: bilateral: CTA - Cardiovascular Rhythm: regular Heart sounds: normal: S1, S2 - Integumentary Integumentary: Present: normal turgor - Musculoskeletal Musculoskeletal: Present: gait normal - Psychiatric Psychiatric: Present: A&O x's 3, appropriate affect, intact judgment & insight - Additional findings Additional findings: Breast Exam: BRA: 34B Inspection: Bilateral grade 2 ptosis Palpation: Right breast: Multi positional exam no dominant masses or nodules of concern, dense breast with fibrocystic changes, into the upper outer quadrant region does not reveal any specific lumps masses or nodules of concern there is some tenderness greater in the upper outer quadrant on both breast Right axilla: No adenopathy of concern Left breast: Multi positional exam no dominant masses or nodules of concern, dense breast with fibrocystic changes, upper outer quadrant tender Left axilla: No adenopathy of concern Assessment and Plan Assessment: Impression: dense breast fibrocystic breast changes scar with inflamation right breast Status post stereotactic core biopsy right breast/benign concordant bilateral mammogram 09-07-24 BIRAD 3 repeat right breast mammogram in 6 months; repeat right breast mammogram 03-25-25 BIRAD 3 repeat bilateral mammogram in 6 months Plan: bilateral mammogram in 6 months with appointment follow up sooner if any concerns CC: Dr. Salgado
== END | disposition home or self-care (01) ==
LOC: WWCWWP 10:03
PROVIDERS: ATTEND Surgery
DX: N60.19 Diffuse cystic mastopathy of unspecified breast (principal); L90.5 Scar conditions and fibrosis of skin; R92.30 Dense breasts, unspecified; Z91.030 Bee allergy status